=== PATIENT | male | born 1980 | race Caucasian/White ===

== ENCOUNTER 2018-12-21 15:24 | Emergency (ER) | payer SELFPAY ==
[2018-12-21 15:41] VITALS: TEMP 99.2
--- NOTE | 2018-12-21 16:08 | ED PDOC ---
Arrival/HPI - General Chief Complaint: Abdominal Pain Historian: Patient - History of Present Illness Narrative History of Present Illness (Text): 12/21/18 16:05 Patient is a 38 yo male, denies past medical history, presents to the Emergency Department with 3 day history of right lower quadrant abdominal pain. Patient states that pain was of gradual onset, has been same intensity over past three days. Does not radiate. NO associated fevers, no nausea or vomiting, no diarrhea, denies urinary symptoms. Denies loss of appetite. Patient states that he has outpatient ultrasound today after being seen by his clinic physician in [place] but does not have an official report but was advised further evaluation. Time/Duration: < week Symptom Onset: Gradual Past Medical History - Provider Review Nursing Documentation Reviewed: Yes - Infectious Disease Hx of Infectious Diseases: None - Cardiac Hx Cardiac Disorders: No - Pulmonary Hx Respiratory Disorders: No - Neurological Hx Neurological Disorder: No - HEENT Hx HEENT Disorder: No - Renal Hx Renal Disorder: No - Endocrine/Metabolic Hx Endocrine Disorders: No - Hematological/Oncological Hx Blood Disorders: No - Musculoskeletal/Rheumatological Hx Musculoskeletal Disorders: No - Gastrointestinal Hx Gastrointestinal Disorders: No - Genitourinary/Gynecological Hx Genitourinary Disorders: No - Psychiatric Hx Psychophysiologic Disorder: No Hx Substance Use: No - Anesthesia Hx Anesthesia: No Family/Social History - Physician Review Nursing Documentation Reviewed: Yes Family/Social History: Unknown Family HX Smoking Status: Current Some Days Smoker Hx Alcohol Use: No Hx Substance Use: No Allergies/Home Meds Allergies/Adverse Reactions: Allergies No Known Allergies Allergy (Verified 12/21/18 15:41) Home Medications: Home Meds Medication Instructions Recorded Confirmed No Known Home Med 12/21/18 12/21/18 Review of Systems - Review of Systems Constitutional: absent: Fatigue, Fevers Eyes: absent: Vision Changes ENT: absent: Sore Throat Respiratory: absent: SOB Cardiovascular: absent: Chest Pain Gastrointestinal: Abdominal Pain. absent: Stool Changes, Constipation, Diarrhea, Nausea, Vomiting, Appetite Changes, Hematochezia, Hematemesis, Anorexia, Food Intolerance Genitourinary Male: absent: Dysuria, Frequency, Hematuria, Urinary Output Changes Musculoskeletal: absent: Back Pain, Neck Pain Skin: absent: Rash Neurological: absent: Headache, Dizziness Endocrine: absent: Polyuria Hemo/Lymphatic: absent: Easy Bleeding Physical Exam Vital Signs Reviewed: Yes Vital Signs Temp Pulse Resp BP Pulse Ox 12/21/18 15:36 99.2 F 77 18 114/77 99 Temperature: Afebrile Appearance: Positive for: Well-Appearing, Non-Toxic Mental Status: Positive for: Alert and Oriented X 3 - Systems Exam Head: Present: Atraumatic Pupils: Present: PERRL Extroacular Muscles: Present: EOMI Mouth: Present: Moist Mucous Membranes Pharnyx: No: ERYTHEMA Neck: Present: Normal Range of Motion. No: Meningeal Signs Respiratory/Chest: Present: Clear to Auscultation. No: Respiratory Distress, Wheezes Cardiovascular: Present: Regular Rate and Rhythm Abdomen: Present: Tenderness (focal pain to right lower quadrant, no rebound or guarding, NO Huynh's sign, no pulsatile masses, no palpable hernias). No: Rovsing's Sign Present, Scars Rectal: No: Gross Blood Genitourinary Male: No: Penile Discharge, Testicle Tenderness Back: No: CVA Tenderness Upper Extremity: No: Cyanosis, Edema Lower Extremity: No: Edema, CALF TENDERNESS Neurological: Present: Motor Func Grossly Intact, Normal Sensory Function Skin: Present: Warm Psychiatric: Present: Alert, Normal Insight, Normal Concentration Medical Decision Making ED Course and Treatment: 12/21/18 16:10 Patient states pain intermittent but on exam he has focal right lower quadrant tenderness. No peritoneal signs. Not tachycardic or hypotensive. No fever noted. No hernia noted. Given persistent and palpable RLQ pain, CT abdomen/pelvis with iv contrast ordered. Treatment plan and risks/benefits reviewed with patient, agreeable to plan. Ddx. colitis, renal colic, appendicitis, muscle strain. Labs and CT pending at this time. 12/21/2018 19:04 Abd/Pelvis CT IMPRESSION: No suspicious mass or lymphadenopathy or free fluid collection. No mass or fluid in the region of the appendix. Diverticular changes sigmoid colon. Apparent bladder wall thickening. Clinical correlation advised. Dictator: Davi Wilson M.D Ct results reviewed with surgical team and patient. Patient re-examined. He continues to have focal tenderness to right lower quadrant, although no fever and unremarkable labs. I have reviewed with patient limitations of imaging studies in light of persistent pain, I have also reviewed differential diagnosis with patient. I have recommended admission overnight for serial exams and observation of abdominal pain given persistent discomfort. Labs and UA reviewed with patient. He is agreeable to overnight admission for observation. - Lab Interpretations I have reviewed the lab results: Yes - RAD Interpretation Radiology Orders: 12/21/18 15:48 ABD & PELVIS IV CONTRAST ONLY [CT] Stat Disposition/Present on Arrival - Present on Arrival Any Indicators Present on Arrival: No History of DVT/PE: No History of Uncontrolled Diabetes: No Urinary Catheter: No History of Decub. Ulcer: No History Surgical Site Infection Following: None - Disposition Have Diagnosis and Disposition been Completed?: Yes Diagnosis: Abdominal pain Disposition: AGAINST MEDICAL ADVICE Disposition Time: 20:21 Patient Plan: Admission, Observation Condition: FAIR
[2018-12-21 16:40] LABS: BASO # 0.03 K/mm3 (0.0-2.0); BASO % 0.3 % (0.0-3.0); EOS # 0.1 (0.0-0.7); LYMPH # 4.4 (1.2-3.4); LYMPH % 41.5 % (22.0-35.0); MEAN CELL VOLUME 89.6 fl (80.0-105.0); MEAN CORPUSCULAR HEMOGLOBIN 30.6 pg (25.0-35.0); MEAN CORPUSCULAR HGB CONC 34.2 g/dl (31.0-37.0); MEAN PLATELET VOLUME 10.1 fl (7.0-11.0); MONO # 0.5 (0.1-0.6); MONO % 4.7 % (1.0-6.0); RBC 4.9 10^6/uL (3.5-6.1); WHITE BLOOD COUNT 10.6 10^3/uL (4.5-11.0)
[2018-12-21 16:41] LABS: URINE BILIRUBIN NEGATIVE (NEGATIVE); URINE BLOOD MODERATE (NEGATIVE); URINE GLUCOSE (UA) NEGATIVE (NEGATIVE); URINE LEUKOCYTE ESTERASE NEGATIVE Leu/uL (NEGATIVE); URINE PROTEIN NEGATIVE mg/dL (<30 mg/dL); URINE UROBILINOGEN 0.2 E.U./dL (<1 E.U./dL)
[2018-12-21 16:43] LABS: URINE APPEARANCE SL CLOUDY (CLEAR); URINE COLOR YELLOW (YELLOW)
[2018-12-21 16:44] LABS: ALB/GLOB RATIO 1.5 (1.1-1.8); ALBUMIN 4.6 g/dL (3.0-4.8); ALT/SGPT 57 U/L (7-56); AST/SGOT 33 U/L (17-59); BLOOD UREA NITROGEN 14 mg/dL (7-21); CALCIUM 9.3 mg/dL (8.4-10.5); GFR NON-AFRICAN AMERICAN > 60
[2018-12-21 17:05] LABS: URINE BACTERIA FEW /hpf
[2018-12-21] MEDS ORDERED: Iohexol 350 MG/100 ML VIAL ONE (17:09)
[2018-12-21] MEDS ORDERED: Sodium Chloride 0.9% 1,000 ML IV SCH ×2 (20:30)
[2018-12-21 20:33] VITALS: BP 128/75; PULSE 69; RESP 17; O2SAT 99
--- NOTE | 2018-12-21 21:41 | CP.PCM.HP ---
<Polo Lacey - Last Filed: 12/21/18 21:59> History of Present Illness - History of Present Illness History of Present Illness: Patient left CEE Lacey, PGY1 Hospital H&P This is a 38 year old male who denies any past medical history presenting to the hospital for 3 day history of RLQ abdominal pain. Pain is described as sharp, gradual in onset, rated 7/10 at worst, non radiating, intermittent, denies any alleviating or exacerbating factors and denies any associated symptoms. He denies having similar symptoms in the past. Patient says he had outpatient abdominal ultrasound earlier today in [place], [place] and states he was told he had kidney stone. He denies any history of kidney stones. He is currently symptom free and denies CP, SOB, fevers, nausea, vomiting, numbness, tingling, weakness, swelling, urinary complaints, abdominal pain, diarrhea, constipation, recent sickness, recent trauma and recent travel. 12 point ROS noted here, otherwise u nremarkable. PMH: denies PMD: Christel Lebron SH: smokes 10 ciggs/day for 15 years. Denies alcohol and drug use Sx: denies past surgeries All: NKDA FH: denies Meds: denies Present on Admission - Present on Admission Any Indicators Present on Admission: No Past Patient History - Infectious Disease Hx of Infectious Diseases: None - Past Social History Smoking Status: Light Smoker < 10 Cigarettes Daily - CARDIAC Hx Cardiac Disorders: No - PULMONARY Hx Respiratory Disorders: No - NEUROLOGICAL Hx Neurological Disorder: No - HEENT Hx HEENT Problems: No - RENAL Hx Chronic Kidney Disease: No - ENDOCRINE/METABOLIC Hx Endocrine Disorders: No - HEMATOLOGICAL/ONCOLOGICAL Hx Blood Disorders: No - MUSCULOSKELETAL/RHEUMATOLOGICAL Hx Musculoskeletal Disorders: No - GASTROINTESTINAL Hx Gastrointestinal Disorders: No - GENITOURINARY/GYNECOLOGICAL Hx Genitourinary Disorders: No - PSYCHIATRIC Hx Psychophysiologic Disorder: No Hx Substance Use: No - ANESTHESIA Hx Anesthesia: No Meds Allergies/Adverse Reactions: Allergies Allergy/AdvReac Type Severity Reaction Status Date / Time No Known Allergies Allergy Verified 12/21/18 15:41 Physical Exam - Constitutional Appears: Non-toxic, No Acute Distress - Head Exam Head Exam: ATRAUMATIC, NORMAL INSPECTION - Eye Exam Eye Exam: EOMI Pupil Exam: PERRL - ENT Exam ENT Exam: Mucous Membranes Dry - Neck Exam Neck exam: Positive for: Normal Inspection - Respiratory Exam Respiratory Exam: Clear to Auscultation Bilateral. absent: Accessory Muscle Use, Wheezes, Respiratory Distress - Cardiovascular Exam Cardiovascular Exam: REGULAR RHYTHM, +S1, +S2 - GI/Abdominal Exam GI & Abdominal Exam: Normal Bowel Sounds, Soft. absent: Firm, Guarding, Rebound, Rigid, Tenderness Additional comments: rovsing, obturator sign's are negative foley sign is negative - Extremities Exam Extremities exam: Positive for: normal inspection, pedal pulses present. Negative for: calf tenderness - Back Exam Back exam: NORMAL INSPECTION. absent: CVA tenderness (L), CVA tenderness (R) - Neurological Exam Neurological exam: Alert, CN II-XII Intact, Oriented x3 - Skin Skin Exam: Normal Color, Warm Results - Vital Signs Recent Vital Signs: Last Vital Signs Temp 99.2 F 12/21/18 15:36 Pulse 69 12/21/18 20:30 Resp 17 12/21/18 20:30 BP 128/75 12/21/18 20:30 Pulse Ox 99 12/21/18 20:30 - Labs Result Diagrams: 12/21/18 16:15 12/21/18 16:15 Labs: Laboratory Results - last 24 hr 12/21/18 12/21/18 12/21/18 16:15 16:15 16:15 WBC 10.6 RBC 4.90 Hgb 15.0 Hct 43.9 MCV 89.6 MCH 30.6 MCHC 34.2 RDW 13.0 Plt Count 285 MPV 10.1 Neut % (Auto) 52.5 Lymph % (Auto) 41.5 H Mitchell % (Auto) 4.7 Eos % (Auto) 1.0 L Baso % (Auto) 0.3 Lymph # (Auto) 4.4 H Mitchell # (Auto) 0.5 Eos # (Auto) 0.1 Baso # (Auto) 0.03 Absolute Neuts (auto) 5.56 Sodium 142 Potassium 4.1 Chloride 106 Carbon Dioxide 28 Anion Gap 12 BUN 14 Creatinine 0.8 Est GFR ( Amer) > 60 Est GFR (Non-Af Amer) > 60 Random Glucose 99 Calcium 9.3 Total Bilirubin 0.5 AST 33 ALT 57 H Alkaline Phosphatase 54 Total Protein 7.6 Albumin 4.6 Globulin 3.1 Albumin/Globulin Ratio 1.5 Urine Color Yellow Urine Appearance Sl cloudy Urine pH 7.0 Ur Specific [place] 1.010 Urine Protein Negative Urine Glucose (UA) Negative Urine Ketones Negative Urine Blood Moderate H Urine Nitrate Negative Urine Bilirubin Negative Urine Urobilinogen 0.2 Ur Leukocyte Esterase Negative Urine RBC 10 - 15 H Urine WBC 2 - 5 Ur Epithelial Cells 3 - 4 Urine Bacteria Few Assessment & Plan - Assessment and Plan (Free Text) Assessment: This is a 38 year old male who denies any past medical history presenting to the hospital for 3 day history of RLQ abdominal pain. Patient states pain is currently resolved and is requesting to go home and follow up with PMD. Plan: Patient decided to leave AMA during evaluation of patient. Patient explained risks of leaving including worsening of known/unknown symptoms, permanent disability and possible . Patient verbally aknowledged risks of leaving s igned AMA form. Patient advised to follow up with his PMD as soon as possible and return to ED for any worsening or persistence of symptoms. Patient advised to stay hydrated and drink plenty of fluids and patient agreed. <Cher Alvarez - Last Filed: 12/22/18 05:15> Results - Vital Signs Recent Vital Signs: Last Vital Signs Temp 99.2 F 12/21/18 15:36 Pulse 69 12/21/18 20:30 Resp 17 12/21/18 20:30 BP 128/75 12/21/18 20:30 Pulse Ox 99 12/21/18 20:30 - Labs Result Diagrams: 12/21/18 16:15 12/21/18 16:15 Labs: Laboratory Results - last 24 hr 12/21/18 12/21/18 12/21/18 16:15 16:15 16:15 WBC 10.6 RBC 4.90 Hgb 15.0 Hct 43.9 MCV 89.6 MCH 30.6 MCHC 34.2 RDW 13.0 Plt Count 285 MPV 10.1 Neut % (Auto) 52.5 Lymph % (Auto) 41.5 H Mitchell % (Auto) 4.7 Eos % (Auto) 1.0 L Baso % (Auto) 0.3 Lymph # (Auto) 4.4 H Mitchell # (Auto) 0.5 Eos # (Auto) 0.1 Baso # (Auto) 0.03 Absolute Neuts (auto) 5.56 Sodium 142 Potassium 4.1 Chloride 106 Carbon Dioxide 28 Anion Gap 12 BUN 14 Creatinine 0.8 Est GFR ( Amer) > 60 Est GFR (Non-Af Amer) > 60 Random Glucose 99 Calcium 9.3 Total Bilirubin 0.5 AST 33 ALT 57 H Alkaline Phosphatase 54 Total Protein 7.6 Albumin 4.6 Globulin 3.1 Albumin/Globulin Ratio 1.5 Urine Color Yellow Urine Appearance Sl cloudy Urine pH 7.0 Ur Specific [place] 1.010 Urine Protein Negative Urine Glucose (UA) Negative Urine Ketones Negative Urine Blood Moderate H Urine Nitrate Negative Urine Bilirubin Negative Urine Urobilinogen 0.2 Ur Leukocyte Esterase Negative Urine RBC 10 - 15 H Urine WBC 2 - 5 Ur Epithelial Cells 3 - 4 Urine Bacteria Few Attending/Attestation - Attestation I have personally seen and examined this patient.: Yes I have fully participated in the care of the patient.: Yes I have reviewed all pertinent clinical information: Yes
--- NOTE | 2018-12-22 08:51 | CT ---
Date of service: 12/21/2018 PROCEDURE: CT Abdomen and Pelvis with contrast HISTORY: r/o appendicitis COMPARISON: None. TECHNIQUE: Contrast dose: 100 mL Omnipaque 350 Radiation dose: Total exam DLP = 441.07 mGy-cm. This CT exam was performed using one or more of the following dose reduction techniques: Automated exposure control, adjustment of the mA and/or kV according to patient size, and/or use of iterative reconstruction technique. FINDINGS: LOWER THORAX: Unremarkable. LIVER: Unremarkable. No gross lesion or ductal dilatation. GALLBLADDER AND BILE DUCTS: Unremarkable. PANCREAS: Unremarkable. No gross lesion or ductal dilatation. SPLEEN: Unremarkable. ADRENALS: Unremarkable. No mass. KIDNEYS AND URETERS: Unremarkable. No hydronephrosis. No solid mass. VASCULATURE: Unremarkable. No aortic aneurysm. No aortic atherosclerotic calcification or mural plaque present. BOWEL: Colonic diverticulosis. No obstruction. No gross mural thickening. APPENDIX: No findings to suggest acute appendicitis. PERITONEUM: Unremarkable. No free fluid. No free air. LYMPH NODES: Unremarkable. No enlarged lymph nodes. BLADDER: Unremarkable. REPRODUCTIVE: Unremarkable. BONES: No acute fracture. OTHER FINDINGS: None. IMPRESSION: No findings to suggest acute appendicitis. No acute abdominal pelvic pathology or CT explanation for the patient's pain/symptoms.
== END 2018-12-21 21:15 | disposition left against medical advice (07) ==
LOC: ED 15:24 → ERH 20:20 → UNDOADMOB 20:20 → ERH 20:41 → ED 21:15
DX: R10.9 Unspecified abdominal pain (principal)
CPT/HCPCS: 74177; 80053; 81001; 85025; 99284; J7030; Q9967